=== PATIENT | female | born 1975 | race Hispanic/Latino ===

== ENCOUNTER 2022-02-09 01:23 | Observation (INO) | payer SELFPAY ==
[2022-02-09 02:58] VITALS: BMI 29.0
[2022-02-09] MEDS ORDERED: Sodium Chloride 0.9% 1,000 ML IV SCH (03:00)
[2022-02-09] MEDS ORDERED: Ketorolac Tromethamine 30 MG/ML VIAL IVP SCH (06:00)
[2022-02-09] MEDS ORDERED: Acetaminophen 500 MG TAB PO SCH (06:00)
[2022-02-09] MEDS ORDERED: Scopolamine 1.5 mg/72 hour Patch TOP PRN (06:01)
[2022-02-09 06:02] LABS: SARS-CoV-2 NAA Rapid Test Not Detected (NotDetected)
[2022-02-09] MEDS ORDERED: Ondansetron PF 4 MG/2 ML Vial IVP PRN (06:02)
[2022-02-09] MEDS ORDERED: Acetaminophen 500 MG TAB PO PRN (06:03)
[2022-02-09] MEDS: Sodium Chloride 0.9% 1,000 ML IV SCH ×2 (06:16→17:01)
[2022-02-09] MEDS: Piperacillin/Tazobactam 3.375 GM in Sodium Chloride 0.9% 100 ML IVPB SCH ×2 (06:16→15:42)
[2022-02-09] MEDS ORDERED: Ketorolac Tromethamine 30 MG/ML VIAL IVP PRN (12:00)
[2022-02-09] MEDS ORDERED: EPINEPHrine 1 MG/ML AMP ONE (13:34)
[2022-02-09] MEDS ORDERED: Bupivacaine 0.25% HCL 30 ML VIAL ONE (13:34)
[2022-02-09] MEDS ORDERED: fentaNYL Citrate/PF 100 MCG/2 ML SYRINGE ONE ×2 (13:40→15:22)
[2022-02-09] MEDS ORDERED: PROPOFOL 200 MG/20 ML VIAL ONE (13:57)
[2022-02-09] MEDS ORDERED: Rocuronium Bromide 10 MG/ML (10ML VIAL) ONE (13:57)
[2022-02-09] MEDS ORDERED: Glycopyrrolate 0.2 MG/ML 5 ML SYRINGE ONE (13:57)
[2022-02-09] MEDS ORDERED: Dexamethasone 20 MG/5 ML VIAL ONE (13:57)
[2022-02-09] MEDS ORDERED: Succinylcholine 200 MG/10 ml SYRINGE FS ONE (13:57)
[2022-02-09] MEDS ORDERED: Ketorolac Tromethamine 30 MG/ML VIAL ONE (13:57)
[2022-02-09] MEDS ORDERED: ePHEDrine 50 MG/ML VIAL ONE (13:57)
[2022-02-09] MEDS ORDERED: Ondansetron PF 4 MG/2 ML Vial ONE (13:57)
[2022-02-09] MEDS ORDERED: NEOSTIGMINE 3 MG/3 ML SYR 3 MG/3 ML SYRINGE ONE (13:57)
[2022-02-09] MEDS ORDERED: traMADol HCl 50 MG TAB PO PRN (14:45)
[2022-02-09 16:37] VITALS: BP 125/82; TEMP 97.4
[2022-02-14] MEDS ORDERED: Ibuprofen 600 MG TAB PO PRN (12:00)
== END 2022-02-09 18:30 | disposition home or self-care (01) ==
LOC: SDC/OP 01:23 → SURG A 01:28 → SDC/OP 01:58 → SURG A 01:58
PROVIDERS: ADMIT Specialist; ATTEND Specialist
PROC: 0DTJ4ZZ Resection of Appendix, Percutaneous Endoscopic Approach (ICD-10-PCS; principal; 2022-02-09)
DX: K35.80 Unspecified acute appendicitis (principal); K36 Other appendicitis; K38.8 Other specified diseases of appendix; Z20.822 Contact with and (suspected) exposure to COVID-19
CPT/HCPCS: 88304; 96365; 96366; 96375; A4649; G0378; J0171; J1100; J1885; J2405; J2543; J2704; J3490; J7050; S0020; U0002